=== PATIENT | female | born 1940 | race Caucasian/White ===

== ENCOUNTER 2017-04-24 09:59 | Inpatient (IN) | payer MEDICARE ==
[2017-04-24] VITALS (9 sets, daily range): BP systolic 103–172; BP diastolic 52–80; PULSE 63–76; RESP 13–16; O2SAT 94–100
[~2017-04-24] VITALS: Ht 167.6 cm; Wt 64.4 kg
--- NOTE | 2017-04-24 07:44 | PCM.HPANE ---
Patient Data Surgeon Admitting Provider: Attending Provider:Dao Isabel MD Primary Care Physician:Elise Vu MD Other Provider:Jill Thomas Anesthesia Reason for Visit Left Hip Arthritis Ht/WT & BMI Height (Feet): 5 Height (Inches): 6 Weight (Kilograms): 64.86 Body Mass Index 22.00 Allergies Coded Allergies: No Known Allergies (Verified Allergy, Unknown, 09/17/14) Past Anesthesia History Anesthesia History: Denies:: Abnormal Airway, Anesthesia Reactions, Difficult Intubation, Fam Anesthesia Reaction, Fam Malignant Hypertherm, Malignant Hyperthermia Diabetes History Hx Diabetes?: No MRSA MRSA: No Medications Blood Thinner: Aspirin Reported Medications [vitamin d2] No Conflict CheckUnknown Dose WEEKLY 04/19/17 Ascorbate Calcium (Vitamin C)500 Mg Tablet1,000 Mg PO DAILY 04/19/17 Turm/Ging/Rivera/Yuc/Dlae/Salvatore/Hor (Tumersaid Tablet)1 Each Tablet1 Each PO DAILY with curcumin 1000mg 04/19/17 Fish Oil/Borage/Flax/Om3,6,9#1 (Triple [place] Complex 3-6-9)400 Mg Urfjunh152 Mg PO DAILY 04/19/17 Red Yeast Rice 600 Mg Prqappb165 Mg PO DAILY 04/19/17 Multivitamin (Multi Vitamin Daily)1 Each Tablet1 Each PO DAILY 30 Days Ref 0 04/19/17 Lutein 20 Mg Gkpoes92 Mg PO DAILY 04/19/17 Hydroxychloroquine Sulfate 200 Mg Gnnsrt164 Mg PO DAILY 30 Days Ref 0 04/19/17 Gluc Tay/MSM/Magnesium/Vit C (Glucosamine Complex-MSM Cap)1 Each Capsule1 Each PO DAILY 04/19/17 Echinacea 400 Mg Ehvuhkx840 Mg PO DAILY 04/19/17 Calcium Carbonate (Calcium)600 Mg Tablet1,200 Mg PO DAILY 04/19/17 Vit B Comp/C/FA/Iron/Vit E (Vitamin B Complex Tablet)1 Each Tablet1 Each PO DAILY 04/19/17 Aspirin 81 Mg Pfjpjc07 Mg PO DAILY Ref 0 04/19/17 Discontinued Reported Medications [neuro-PS] No Conflict Check Po Daily 09/17/14 Fish Oil/Borage/Flax/Om3,6,9#1 (Triple [place] Complex 3-6-9)400 Mg Gjoavdn378 Mg PO DAILY 08/27/14 Red Yeast Rice 600 Mg Pzhzfeh235 Mg PO DAILY 08/27/14 Multivitamin with Minerals (Multivitamins with Minerals)1 Each Tablet1 Each PO DAILY 08/27/14 Magnesium Oxide/Mag Aa Chelate (Magnesium 300 mg Capsule)300 Mg Xecyibm073 Mg PO DAILY 08/27/14 Lutein 20 Mg Jddhblm67 Mg PO DAILY 08/27/14 Hydroxychloroquine Sulfate 200 Mg Fjdwre719 Mg PO DAILY 30 Days Ref 0 08/27/14 Gluc Tay/MSM/Magnesium/Vit C (Glucosamine Complex-MSM Cap)1 Each Capsule1 Each PO DAILY 08/27/14 [place]-3 Fatty Acids/Fish Oil (Fish Oil Softgel)1 Each Capsule1 Each PO DAILY 08/27/14 Echinacea 400 Mg Igydspr886 Mg PO DAILY 08/27/14 Calcium Carbonate (Calcium)600 Mg Tablet1,200 Mg PO DAILY 08/27/14 Vitamin B Complex (B-50 Complex)1 Each Tablet1 Each PO DAILY 08/27/14 Aspirin (Aspir 81)81 Mg Tablet.dr81 Mg PO DAILY Ref 0 08/27/14 History History of ENT Problems?: Yes HEENT History: Positive for:: Glaucoma (hx of surgery right eye) Denies:: Abnormal Airway Difficult Intubation Dysphagia Hearing Problem Hx of Heart Problems?: No Cardiovascular History: Denies:: AICD Atrial Fibrillation Cardiac Surgery Chest Pain Congestive Heart Failure Edema Heart Murmur Hypertension Irregular Heartbeat Pacemaker Thrombophlebitis Valvular Heart Disease Hx of Respiratory Problem?: No Respiratory History: Denies:: Asthma COPD Cough Hemoptysis Oxygen Administration Pneumonia Tuberculosis Use of C-PAP Machine Hx Neurologic Problems?: No Neurological History: Denies:: CVA Dementia Headaches Multiple Sclerosis Parkinson's Disease Seizures Hx of GI Problems?: No Hx of Problems?: No Female Hx: Denies:: Currently (hx of emely oopherectomy) Skin History: Denies:: History Skin Disorders? Hx Musculoskeletal Problems?: Yes Musculoskeletal History: Positive for:: Degenerative Joint Osteoarthritis (left hip current admission problem) Rheumatoid Arthritis Denies:: Joint Replacement Hx of Psycho/Social Problems?: No Psycho Social History: Denies:: Anxiety Hx Depression Hx Surgeries?: Yes (LAPAROTOMY FOR ABD PAIN, BSO, INGUINAL HERNIA, D+C) Hx Any Other Health Problems?: Yes Other History: Denies:: Thyroid Disease History Blood Transfusions: Denies:: Blood Transfusions Hx Diabetes: No Hx Alcohol Use: YesAlcoholic Drinks Per Day: one drink dailyHx Substance Use: No Smoking Status: Never Smoker Have You Smoked inLast 12 mo: No Stop/Bang S-Snoring: Do You Snore Loudly: No T-Tired: feel tired, fatigued: Yes O-Obsered: Observed not breath: No P-Blood Pressure: treated: No B- Body Mass Index > 35 kg/m2: No A- Age over 50: Yes N- Neck Large Circumference: No G- Gender Male: No SRIRAM Total Score: 2 Risk Assessment Category Category 1A: Patient has history of documented sleep apnea, and HAS NOT received any narcotic, sedative or anesthesia administration during this stay. Category 1B: Patient has history of documented sleep apnea, and HAS received any narcotic , sedative or anesthesia administration during this stay Category 2: Patient has SUSPECTED Obstructive Sleep Apnea, and HAS received any narcotic , sedative or anesthesia administration during this stay. Category 3: Patient has SUSPECTED Obstructive Sleep Apnea and HAS NOT received narcotic, sedative or anesthesia administration during this stay. Category 4: Outpatient in Procedural Areas with known sleep apnea or who screen positive for High Risk via the STOP/BANG questionnaire. Plan Impression Patient chart reviewed, patient interviewed and anesthestic plan with risks, benefits, and alternatives discussed, and informed consent obtained. Magan Terrell MD Apr 24, 2017 07:44
[~2017-04-24 09:59] MED LIST: ASCO-294 PO; ASPI-973 PO; CALC600T12 PO; CeFAZolin 2 Gm/50 mL D5W IV Premix IV ONE; ECHI400C17 PO; FISH400C2 PO; GLUC1CAP8 PO; HYDR200T5 PO; LUTE20TA PO; Lactated Ringer's 1,000 ML IV ONE; MULT-1018 PO; RED600CA2 PO; TURM1TAB PO; VIT1TABL83 PO; Vancomycin Inj 1,000 MG in IV Premix 1 EACH IV ONE; vitamin d2
--- NOTE | 2017-04-24 11:24 | PCM.HPANE ---
Patient Data Surgeon Admitting Provider: Attending Provider:Dao Isabel MD Primary Care Physician:Elise Vu MD Other Provider:Jill Thomas Anesthesia Reason for Visit Left Hip Arthritis Ht/WT & BMI Height (Feet): 5 Height (Inches): 6 Weight (Kilograms): 64.86 Body Mass Index 22.00 Allergies Coded Allergies: No Known Allergies (Verified Allergy, Unknown, 09/17/14) Past Anesthesia History Anesthesia History: Denies:: Abnormal Airway, Anesthesia Reactions, Difficult Intubation, Fam Anesthesia Reaction, Fam Malignant Hypertherm, Malignant Hyperthermia Diabetes History Hx Diabetes?: No MRSA MRSA: No Medications Blood Thinner: Aspirin Reported Medications [vitamin d2] No Conflict CheckUnknown Dose WEEKLY 04/19/17 Ascorbate Calcium (Vitamin C)500 Mg Tablet1,000 Mg PO DAILY 04/19/17 Turm/Ging/Rivera/Yuc/Dale/Salvatore/Hor (Tumersaid Tablet)1 Each Tablet1 Each PO DAILY with curcumin 1000mg 04/19/17 Fish Oil/Borage/Flax/Om3,6,9#1 (Triple [place] Complex 3-6-9)400 Mg Xpddbiv427 Mg PO DAILY 04/19/17 Red Yeast Rice 600 Mg Phmdtmw162 Mg PO DAILY 04/19/17 Multivitamin (Multi Vitamin Daily)1 Each Tablet1 Each PO DAILY 30 Days Ref 0 04/19/17 Lutein 20 Mg Mofyre78 Mg PO DAILY 04/19/17 Hydroxychloroquine Sulfate 200 Mg Zkhhui642 Mg PO DAILY 30 Days Ref 0 04/19/17 Gluc Tay/MSM/Magnesium/Vit C (Glucosamine Complex-MSM Cap)1 Each Capsule1 Each PO DAILY 04/19/17 Echinacea 400 Mg Ilcqkjf142 Mg PO DAILY 04/19/17 Calcium Carbonate (Calcium)600 Mg Tablet1,200 Mg PO DAILY 04/19/17 Vit B Comp/C/FA/Iron/Vit E (Vitamin B Complex Tablet)1 Each Tablet1 Each PO DAILY 04/19/17 Aspirin 81 Mg Sonozr84 Mg PO DAILY Ref 0 04/19/17 Discontinued Reported Medications [neuro-PS] No Conflict Check Po Daily 09/17/14 Fish Oil/Borage/Flax/Om3,6,9#1 (Triple [place] Complex 3-6-9)400 Mg Afekwkt304 Mg PO DAILY 08/27/14 Red Yeast Rice 600 Mg Ygudowj339 Mg PO DAILY 08/27/14 Multivitamin with Minerals (Multivitamins with Minerals)1 Each Tablet1 Each PO DAILY 08/27/14 Magnesium Oxide/Mag Aa Chelate (Magnesium 300 mg Capsule)300 Mg Ovrafkp229 Mg PO DAILY 08/27/14 Lutein 20 Mg Egfpeqc69 Mg PO DAILY 08/27/14 Hydroxychloroquine Sulfate 200 Mg Jopcbv805 Mg PO DAILY 30 Days Ref 0 08/27/14 Gluc Tay/MSM/Magnesium/Vit C (Glucosamine Complex-MSM Cap)1 Each Capsule1 Each PO DAILY 08/27/14 [place]-3 Fatty Acids/Fish Oil (Fish Oil Softgel)1 Each Capsule1 Each PO DAILY 08/27/14 Echinacea 400 Mg Xxixawk010 Mg PO DAILY 08/27/14 Calcium Carbonate (Calcium)600 Mg Tablet1,200 Mg PO DAILY 08/27/14 Vitamin B Complex (B-50 Complex)1 Each Tablet1 Each PO DAILY 08/27/14 Aspirin (Aspir 81)81 Mg Tablet.dr81 Mg PO DAILY Ref 0 08/27/14 History History of ENT Problems?: Yes HEENT History: Positive for:: Glaucoma (hx of surgery right eye) Denies:: Abnormal Airway Difficult Intubation Dysphagia Hearing Problem Denture Type: None Teeth Condition: Within Normal Limits Hx of Heart Problems?: No Cardiovascular History: Denies:: AICD Atrial Fibrillation Cardiac Surgery Chest Pain Congestive Heart Failure Edema Heart Murmur Hypertension Irregular Heartbeat Pacemaker Thrombophlebitis Valvular Heart Disease Hx of Respiratory Problem?: No Respiratory History: Denies:: Asthma COPD Cough Hemoptysis Oxygen Administration Pneumonia Tuberculosis Use of C-PAP Machine Hx Neurologic Problems?: No Neurological History: Denies:: CVA Dementia Headaches Multiple Sclerosis Parkinson's Disease Seizures Hx of GI Problems?: No Hx of Problems?: No Female Hx: Denies:: Currently (hx of emely oopherectomy) Skin History: Denies:: History Skin Disorders? Hx Musculoskeletal Problems?: Yes Musculoskeletal History: Positive for:: Degenerative Joint Osteoarthritis (left hip current admission problem) Rheumatoid Arthritis Denies:: Joint Replacement Hx of Psycho/Social Problems?: No Psycho Social History: Denies:: Anxiety Hx Depression Hx Surgeries?: Yes (LAPAROTOMY FOR ABD PAIN, BSO, INGUINAL HERNIA, D+C) Hx Any Other Health Problems?: Yes Other History: Denies:: Thyroid Disease History Blood Transfusions: Denies:: Blood Transfusions Hx Diabetes: No Hx Alcohol Use: YesAlcoholic Drinks Per Day: one drink dailyHx Substance Use: No Smoking Status: Never Smoker Have You Smoked inLast 12 mo: No Stop/Bang S-Snoring: Do You Snore Loudly: No T-Tired: feel tired, fatigued: Yes O-Obsered: Observed not breath: No P-Blood Pressure: treated: No B- Body Mass Index > 35 kg/m2: No A- Age over 50: Yes N- Neck Large Circumference: No G- Gender Male: No SRIRAM Total Score: 2 SRIRAM Risk Assessment: Low Risk, <3 Yes Risk Assessment Category Category 1A: Patient has history of documented sleep apnea, and HAS NOT received any narcotic, sedative or anesthesia administration during this stay. Category 1B: Patient has history of documented sleep apnea, and HAS received any narcotic , sedative or anesthesia administration during this stay Category 2: Patient has SUSPECTED Obstructive Sleep Apnea, and HAS received any narcotic , sedative or anesthesia administration during this stay. Category 3: Patient has SUSPECTED Obstructive Sleep Apnea and HAS NOT received narcotic, sedative or anesthesia administration during this stay. Category 4: Outpatient in Procedural Areas with known sleep apnea or who screen positive for High Risk via the STOP/BANG questionnaire. Exam Exam General Appearance: Alert HEENT/AIRWAY: MP 1 Lungs: Clear to Auscultation Heart: Exam Unremarkable Plan Impression Patient chart reviewed, patient interviewed and anesthestic plan with risks, benefits, and alternatives discussed, and informed consent obtained. ASA Physical Status: ASA2 Mod Systemic Disease Anesthetic Plan: SAB Bene/Risks/Altern/Consents: Yes HP Complete Prior to Induction: Yes Moises Lopez MD Apr 24, 2017 11:24
[2017-04-24] MEDS ORDERED: Vancomycin 1,000mg/200 mL NS IV ONE (12:04)
[2017-04-24] MEDS ORDERED: CeFAZolin 2 Gm/50 mL D5W Duplex Bag IV ONE (12:04)
[2017-04-24] MEDS ORDERED: Tranexamic Acid 100 mg/mL 10 mL Inj ONE (13:03)
[2017-04-24] MEDS ORDERED: 0.9% Sodium Chloride 100 ML ONE (13:04)
[2017-04-24] MEDS ORDERED: Bupivacaine-MPF 0.5% W/EPI 30 mL Inj INFILTRATE ONE (13:54)
--- NOTE | 2017-04-24 15:15 | PCM.ANEP1 ---
Post Anesthesia PACU Phase 1 Assessment Vital Signs hr 72 sat 95 bp rr10 temp 105/52 Vital Signs Date Time Temp Pulse Resp B/P Pulse Ox O2 Delivery O2 Flow Rate FiO2 04/24/17 11:29 36.3 64 16 172/74 100 Room Air Anesthetic Administered: Regional Block Level of Alertness: Awake, talking FORRESTER's with Equal Strength: No Pain: No Nausea or Vomiting: No CV Function & Hydration Stable: No Airway Device: Oxygen Delivery: Room Air Lungs: Clear to Auscultation Dermatome Level: T10 (Umbilicus) PACU Phase 2 Assessment Complications: No Follow up Care: N/A Patient Instructions Provided: N/A Moises Lopez MD Apr 24, 2017 15:15
[2017-04-24 15:33] LABS: APPEARANCE,URINE HAZY (CLEAR,HAZY); COLOR,URINE STRAW (YELLOW); OCCULT BLOOD,URINE NEGATIVE (NEGATIVE); UROBILINOGEN,URINE NORMAL (NORMAL)
--- NOTE | 2017-04-24 16:06 | DRSVH ---
PROCEDURE: X-RAY PELVIS ONE OR TWO VIEWS ([id number]) INDICATIONS: POST LEFT IAN TECHNIQUE: 1 view of the lower pelvis acquired. COMPARISON: None. FINDINGS: Bones: Patient is status post left hip arthroplasty, with hardware components in expected positions. The hip joint appears congruent. The visualized bony structures appear intact. Soft tissues: Overlying postoperative changes are noted. No suspicious soft tissue densities. IMPRESSION: Status post left hip arthroplasty. Dictated by: Ramona Dykes MD, PhD on 04/24/2017 at 16:04 Approved by: Ramona Dykes MD, PhD on 04/24/2017 at 16:05
[2017-04-24] MEDS ORDERED: fentaNYL-PF 50 mCg/mL 2 mL Inj ONE (16:29)
[2017-04-24] MEDS ORDERED: Ondansetron 2 mg/mL 2 mL Inj ONE (16:42)
[2017-04-24] MEDS ORDERED: diphenhydrAMINE 25 mg Capsule PO PRN (17:30)
[2017-04-24] MEDS ORDERED: hydrOXYzine Pamoate 25 mg Capsule PO PRN (17:30)
[2017-04-24] MEDS ORDERED: Magnesium Hydroxide 10 mL Oral Concentration PO PRN (17:30)
[2017-04-24] MEDS ORDERED: LORazepam 0.5 mg Tablet PO PRN (17:55)
[2017-04-24] MEDS ORDERED: oxyCODONE-Acetamin 5-325 mg Tablet PO PRN (17:55)
[2017-04-24] MEDS: Lactated Ringer's 1,000 ML IV SCH (18:31)
--- NOTE | 2017-04-24 18:57 | NUR ---
Transfer/Bilateral Lower Extremity Sensation Pt. arrived to room 1009 OSC from OR at about 1615 after having a total Left hip replacement. Pt. arrived A&Ox3 with a garcia in place draining to gravity. Urine color yellow and pale, Pt. has no lower extremity feeling at this time and is bedrest. Pts. states feeling some nausea and PRN zofran IV push was given. At about 1815 Pt. states returning sensation in bilateral legs. Pt. is able to perform foot pumps, pedal pulses palpable bilaterally. Pt. is still stating some slight nausea and chicken broth was given, Pt. is tolerating that well as of now.
[2017-04-24] MEDS: Ketorolac 15 mg/mL Inj IVPUSH PRN (20:26)
[2017-04-24] MEDS: MetoCLOpramide 5 mg/mL 2 mL Inj IVPUSH PRN (21:17)
[2017-04-24] MEDS: Ondansetron 2 mg/mL 2 mL Inj IVPUSH PRN (21:28)
[2017-04-25 00:40] VITALS: BP 118/72; PULSE 70; RESP 16; O2SAT 95
[2017-04-25] MEDS: MetoCLOpramide 5 mg/mL 2 mL Inj IVPUSH PRN ×3 (00:41→10:52)
--- NOTE | 2017-04-25 00:47 | OP ---
[address] [address] OPERATIVE REPORT PATIENT: FELICITAS WATKINS : 1940 MR#: [id number] ADMIT: 04/24/2017 JOB ID: [id number] DATE OF SURGERY: PREOPERATIVE DIAGNOSIS(ES): Advanced arthritis, left hip. Symptoms uncontrolled by conservative techniques. POSTOPERATIVE DIAGNOSIS(ES): Advanced arthritis, left hip. Symptoms uncontrolled by conservative techniques. PROCEDURE: Left total hip arthroplasty. SURGEON: Dao Isabel MD. MANAGER OF CORPORATE: Kim Robles PA-C. Direct Marketing Representative required due to the major complexity of the operation. INDICATIONS: This woman requests proceeding with a total hip replacement. She understands and accepts the potential for risks and complications, which include, but not limited to infection, thromboembolic, neurovascular events, potential for dislocation, leg length inequality, and implant failure. Understanding these, she wishes to proceed. PROCEDURE: The patient was prepped and draped in the usual sterile fashion posterior-lateral. She was placed on the operating room table in a lateral position. A posterolateral approach was made after sterile prep and drape and appropriate time-out. The dissection was carried down. The piriformis was tagged and released. Capsule capsule was T'd, tagged, and released. The hip was opened. A marked effusion was encountered with aggressive synovitis inflammatory fluid was benign in nature clear without evidence for infection. Standard distal femoral head cut made. Bone fragment removed. The acetabulum was exposed and then progressively reamed to a 53. A 54 outer bearing shell was impacted into place in excellent position. A box osteotome utilized on the femur followed by T-handle reamer progressive broaching at 10 finally chosen as the optimal size. Trial reduction was performed. Serial neck length produced slight lengthening, excellent stability utilizing a dual mobility femoral head. Final implant was placed with identical positioning. Final construct assembled. Excellent stability was encountered. The patient was irrigated with sterile irrigant and then a dilute Betadine solution. The final closure was performed, closing capsule with #1 braided nylon to bone, external rotators closed and reattached to bone. #2 Quill utilized for deep closure, 2-0 Vicryl, 3-0 and a 4-0 intracuticular stitch utilized. Final dressing applied. Patient returned to the recovery room in stable condition. She tolerated the procedure well. There were no complications.
[2017-04-25] MEDS: Ondansetron 2 mg/mL 2 mL Inj IVPUSH PRN (02:51)
--- NOTE | 2017-04-25 03:29 | NUR ---
Pain/Nausea Pt only tolerating chicken broth and jello at start of shift. Continued to have waves of nausea. With increased pain levels d/t block wearing off, pt with increased nausea. 5mg IVP Reglan given with 2mg IVP Morphine, pt with emesis. journeyman carpenter assisting and administered 8mg IVP Zofran. Pt stating effective and eventually, once settled, was able to drift off to sleep. Pt continues to require IVP Morphine 2mg about every 1.5-2hrs with intermittent nausea medication. Pt with lots of gas, no further emesis thus far. Care continues. Addendum: 04/25/17 at 0337 by JORGE ALBERTO GRIGSBY RN Once nausea subsides and tolerating PO will attempt to switch to PO pain medications. Diet advanced to general. Will advise pt to order light breakfast d/t nausea issues.
[2017-04-25] MEDS: Ketorolac 15 mg/mL Inj IVPUSH PRN ×2 (04:07→15:26)
[2017-04-25 05:15] VITALS: BP 111/63; PULSE 73; RESP 16; O2SAT 94
[2017-04-25 05:26] LABS: BASOPHILS % (AUTO) 0.1 % (0-3); EOSINOPHILS % (AUTO) 0 % (0-5); MONOCYTES % (AUTO) 5.7 % (4-12); Mean Corpuscular Hemoglobin 31.4 pg (27.0-35.0); NEUTROPHILS % (AUTO) 88.1 % (40-74); Platelet Count 257 bil/L (150-400)
--- NOTE | 2017-04-25 08:41 | PCM.PNORTH ---
Subjective Date of Service: Apr 25, 2017 Visit Information: Reason for Visit Left Hip Arthritis Surgery/Surgery Date Post-Op Day # 1 Date of Admission: Apr 24, 2017 at 16:28 Hospital Day # Subjective Patient states she is having minimal discomfort now but had a "very rough night " in which she states she had to take a lot of morphine. She states physical therapy as not worked with her yet this morning and told her they would be by this afternoon to see her. Postop General: No Complaints, No Shortness of Breath, No Chest Pain Pain Management: PO Objective Exam Objective Sitting up in bed eating breakfast Vital Signs and I/O Vital Sign - Last Date Time Temp Pulse Resp B/P Pulse Ox O2 Delivery O2 Flow Rate FiO2 04/25/17 05:15 36.8 73 16 111/63 94 Room Air Intake and Output 04/24/17 04/24/17 04/25/17 Cumulative From/Thru 15:00 23:00 07:00 04/19/17 17:04 - 04/25/17 06:42 Intake Total 1050 ml 300 ml 1821 ml 3171 ml Output Total 200 ml 100 ml 600 ml 900 ml Balance 850 ml 200 ml 1221 ml 2271 ml Intake Oral 200 ml 600 ml 800 ml IV Total 1050 ml 100 ml 1221 ml 2371 ml Output Urine Total 100 ml 100 ml 450 ml 650 ml Emesis 150 ml 150 ml Estimated Blood Loss 100 ml 100 ml Lab & Micro Results Laboratory Tests Test 04/24/17 15:23 04/25/17 05:03 Urine Color Straw (YELLOW) Urine Appearance Hazy (CLEAR,HAZY) Urine pH 7.0 (5.0-8.0) Urine Specific [place] 1.015 (1.003-1.035) Urine Protein Negativemg/dL (NEG,TRACE) Urine Glucose (UA) Negativemg/dL (NEGATIVE) Urine Ketones Negativemg/dL (NEGATIVE) Urine Occult Blood Negative (NEGATIVE) Urine Nitrite Negative (NEGATIVE) Urine Bilirubin Negative (NEGATIVE) Urine Urobilinogen Normalmg/dL (NORMAL) Urine Leukocyte Esterase Negative (NEGATIVE) Urine RBC 0-2/hpf (0-2) Urine WBC 0-5/hpf (0-5) Urine Epithelial Cells Occasional/hpf (NONE-MOD) Urine Crystals None seen (NONE SEEN) Urine Bacteria None/hpf (NONE-FEW) Urine Hyaline Casts None/lpf (NONE) Urine Granular Casts None seen (NONE SEEN) Urine Waxy Casts None seen (NONE SEEN) Urine Red Blood Cell Casts None seen (NONE SEEN) Urine White Blood Cell Casts None seen (NONE SEEN) Urine Mucus None seen (None Seen) Urine Trichomonas None seen (NONE SEEN) Urine Yeast None (NONE SEEN) Urinalysis Comment None Urine Culture Reflexed Not indicated White Blood Count 10.7th/mm3 (3.8-10.1) Red Blood Count 2.99mil/mm3 (3.90-5.20) Hemoglobin 9.4g/dL (12.0-15.6) Hematocrit 28.4% (35.0-46.0) Mean Corpuscular Volume 95.0fL (81-100) Mean Corpuscular Hemoglobin 31.4pg (27.0-35.0) Mean Corpuscular Hemoglobin Concent 33.1% (32.0-37.0) Red Cell Distribution Width 12.1% (12.3-15.4) Platelet Count 257bil/L (150-400) Neutrophils (%) (Auto) 88.1% (40-74) Lymphocytes (%) (Auto) 5.9% (14-46) Monocytes (%) (Auto) 5.7% (4-12) Eosinophils (%) (Auto) 0% (0-5) Basophils (%) (Auto) 0.1% (0-3) Result Diagram: 04/25/17 0503 General Appearance: Alert, Oriented X3, Cooperative, No Acute Distress Extremities: Distal Pulses Palpable, No Compartment Syndrom Noted, Thigh & Calf Soft/Nontender Postop Sensory Motor: Distal Motor Intact, Movement in Toes, Distal Sensation Intact, NVI Distally SURGICAL WOUND : Wound Location/Description Perioperative dressing c/d/i Activity: Ambulate with PT Assessment & Plan Impression POD#1 left total hip arthroplasty Problems: Plan Weightbearing: Weightbearing as tolerated with a front wheeled walker DVT prophylaxis: Aspirin 81mg BID x6 weeks Physical therapy for transfers, progressive ambulation, strengthening Hip precautions were reviewed with patient today Wound care: Perioperative dressings will be changed to an island dressing tomorrow Analgesia: Oral pain management is preferred. Discharge plan: Discharge home in 1-2 days. Follow-up plan: In 2 weeks at [facility] with PA for wound check and at [address] Isabel with x-rays VTE Prophylaxis: Other (Aspirin 81mg BID x6 weeks) Kim Robles PA-C Apr 25, 2017 08:41
[2017-04-25] MEDS: HYDROcodone-APAP 5-325 mg Tablet PO PRN ×3 (08:53→18:27)
[2017-04-25] MEDS ORDERED: HYDR200T5 PO (09:10)
[2017-04-25] MEDS: CeFAZolin 2 Gm/50 mL D5W IV Premix IV SCH ×2 (10:07→17:59)
[2017-04-25] MEDS: Lactated Ringer's 1,000 ML IV SCH (10:07)
[2017-04-25 11:02] VITALS: BP 122/82; PULSE 68; RESP 17; O2SAT 95
[2017-04-25 15:32] VITALS: BP 115/78; PULSE 52; RESP 16; O2SAT 94
[2017-04-25 20:20] VITALS: BP 116/66; PULSE 75; RESP 17; O2SAT 98
[2017-04-26] MEDS: HYDROcodone-APAP 5-325 mg Tablet PO PRN ×4 (00:36→18:24)
--- NOTE | 2017-04-26 03:00 | NUR ---
Void Pt garcia dc'd 04/25/17 at 1530. Pt aware of the need to void by 1930 per RN shift report. DRYWALL HANGER HELPER assisted pt to BSC at 1999, pt voided 50cc. DRYWALL HANGER HELPER reported PVR 13cc. Pt denies pressure or bladder discomfort. Pt again up to BR at 0030 with again, minimal output. Couple hundred cc's. Dark courtney appearing urine. Pt continues to deny discomfort. Encouraged PO hydration, IVF continue. Care continues.
[2017-04-26] MEDS: Lactated Ringer's 1,000 ML IV SCH ×2 (03:57→19:27)
[2017-04-26 05:58] VITALS: BP 164/75; PULSE 77; RESP 17; O2SAT 94
--- NOTE | 2017-04-26 07:24 | PCM.PNORTH ---
Subjective Date of Service: Apr 26, 2017 Visit Information: Reason for Visit Left Hip Arthritis Surgery/Surgery Date left total hip arthroplasty 04/24/2017 Post-Op Day # 2 Date of Admission: Apr 24, 2017 at 16:28 Hospital Day # Subjective Patient reports she is feeling much better today. She denies nausea, weakness or dizziness. She still does not feel like eating very much. Patient is already out of bed and sitting up in a chair. She feels a lot better sitting up in bed. She is looking forward to getting up and doing some walking today. Postop General: No Complaints, No Shortness of Breath, No Chest Pain Pain Management: PO Objective Exam Objective Patient is seen sitting up in a chair Vital Signs and I/O Vital Sign - Last Date Time Temp Pulse Resp B/P Pulse Ox O2 Delivery O2 Flow Rate FiO2 04/26/17 05:58 36.7 77 17 164/75 94 Room Air Intake and Output 04/25/17 04/25/17 04/26/17 Cumulative From/Thru 15:00 23:00 07:00 04/19/17 17:04 - 04/26/17 05:58 Intake Total 1222 ml 1939 ml 6332 ml Output Total 200 ml 450 ml 1550 ml Balance 1022 ml 1489 ml 4782 ml Intake Oral 520 ml 1220 ml 2540 ml IV Total 702 ml 719 ml 3792 ml Output Urine Total 200 ml 450 ml 1300 ml Emesis 150 ml Estimated Blood Loss 100 ml # Bowel Movements 0 0 Result Diagram: 04/25/17 0503 General Appearance: Alert, Oriented X3, Cooperative, No Acute Distress Extremities: Distal Pulses Palpable, No Compartment Syndrom Noted, Thigh & Calf Soft/Nontender Postop Sensory Motor: Distal Motor Intact SURGICAL WOUND : Incision General Appearance: No Direct Observation Dressing & Drainage Status: Intact (clean and dry) Activity: Activity per PT, Ambulate with PT Catheters: None Assessment & Plan Impression POD #2 status post left total hip arthroplasty Problems: Plan Patient appears much more clear and alert today Weightbearing: Weightbearing as tolerated with a front wheeled walker DVT prophylaxis: Aspirin 81mg BID x6 weeks Physical therapy for transfers, progressive ambulation, strengthening Hip precautions were reviewed with patient today Wound care: Dressing is changed last night by nursing to an island dressing. It is clean dry and intact Analgesia: Oral pain management is preferred. We will avoid IV pain medication as this is likely contribute to her nausea and feeling "woozy" Discharge plan: Discharge home tomorrow. Follow-up plan: In 2 weeks at [facility] with PA for wound check and at [address] Isabel with x-rays VTE Prophylaxis: Other (Aspirin 81mg BID x6 weeks) Esha Matute PA-C Apr 26, 2017 07:23
[2017-04-26 08:24] VITALS: BP 113/62; PULSE 75; RESP 17; O2SAT 96
--- NOTE | 2017-04-26 10:45 | NUR ---
ALIS Signed @ 1010 AM
[2017-04-26 12:02] VITALS: BP 118/80; PULSE 68; RESP 17; O2SAT 98
--- NOTE | 2017-04-26 16:27 | NUR ---
activity tolerating activity well, up in room frequently with FWW. good pain control with [place]. WBAT
--- NOTE | 2017-04-26 16:28 | NUR ---
Social Work- Initial Assessment Data: See Initial Assessment. Pt is a 77 year old female admitted 04/24/17 for left hip arthritis. Pt is POD 2 of elective hip replacement. Pt's insurance is [facility] and PCP is Elise Vu MD. Pt's NOK/DPOA is Jesus Wahl, , . Jesus is pt's designated discharge planning contact. Pt's readmit risk score is 1- low risk. SW met with pt at bedside regarding discharge plan, SW role explained. Pt alert and oriented x3. Pt resides in [place] with her where she is independent at baseline. Pt continues to drive. Pt lives in a home with two levels but will be remaining on the main level as she recovers. Pt does not use any DME at baseline but has borrowed a cane and walker for ambulation after this admission. Pt confirms she has scheduled outpt PT beginning on Monday at [facility] in . Pt has no HH or SNF history. Pt has no LTC or VA benefits. PT evaluated pt and is concerned as pt is ambulating very slowly and is min A with fww at times. It took pt a prolonged period of time to ambulate 25 feet and pt was reported as being very rigid. Pt stated belief that she will progress prior to admission. Pt agreeable to continued therapy. Pt acknowledges that this is atypical given her baseline mobility is exercise classes 3 times per week. Pt to discharge home with to transport via POV. No discharge needs identified at this time but SW will continue to follow to ensure progressive ambulation with therapy and safe discharge planning. Assessment: Pt who is independent at baseline and who will follow up with outpt PT. Plan: Pt to discharge home with to transport via POV. No discharge needs identified at this time but SW will continue to follow to ensure progressive ambulation with therapy and safe discharge planning. KERA Castillo Addendum: 04/26/17 at 1633 by MONI ANNE-MARIE SS Amended: Links added.
[2017-04-26 19:30] VITALS: BP 129/68; PULSE 72; RESP 17; O2SAT 96
[2017-04-27] MEDS: HYDROcodone-APAP 5-325 mg Tablet PO PRN ×3 (00:54→12:48)
[2017-04-27 04:51] VITALS: BP 136/63; PULSE 74; RESP 17; O2SAT 97
--- NOTE | 2017-04-27 07:35 | NUR ---
Ambulation Patient up independent from bed to bathroom stand by assist w/FWW. Patient A&OX3. Vitals stable. Patient taking 2 [place] for pain.
[2017-04-27 08:20] VITALS: BP 139/71; PULSE 69; RESP 20; O2SAT 95
--- NOTE | 2017-04-27 08:21 | PCM.PNORTH ---
Subjective Date of Service: Apr 27, 2017 Visit Information: Reason for Visit Left Hip Arthritis Surgery/Surgery Date left total hip arthroplasty 04/24/2017 Post-Op Day # 3 Date of Admission: Apr 24, 2017 at 16:28 Hospital Day # Subjective Patient reports that she is feeling much better today. She is independently gotten out of bed and up to the bathroom. She is currently sitting in chair. She feels that she is ready for going home today. Postop General: No Complaints, No Shortness of Breath, No Chest Pain Pain Management: PO Objective Exam Objective Patient is seen sitting up in a chair Vital Signs and I/O Vital Sign - Last Date Time Temp Pulse Resp B/P Pulse Ox O2 Delivery O2 Flow Rate FiO2 04/27/17 04:51 36.7 74 17 136/63 97 Room Air Intake and Output 04/26/17 04/26/17 04/27/17 Cumulative From/Thru 15:00 23:00 07:00 04/19/17 17:04 - 04/27/17 04:51 Intake Total 1107 ml 1100 ml 8539 ml Output Total 850 ml 800 ml 3200 ml Balance 257 ml 300 ml 5339 ml Intake Oral 1107 ml 1100 ml 4747 ml IV Total 3792 ml Output Urine Total 850 ml 800 ml 2950 ml Emesis 150 ml Estimated Blood Loss 100 ml # Bowel Movements 0 0 Result Diagram: 04/25/17 0503 General Appearance: Alert, Oriented X3, Cooperative, No Acute Distress Extremities: Distal Pulses Palpable, No Compartment Syndrom Noted, Thigh & Calf Soft/Nontender Postop Sensory Motor: Distal Motor Intact, NVI Distally SURGICAL WOUND : Incision General Appearance: No Direct Observation Dressing & Drainage Status: Intact (clean and dry) Activity: Activity per PT, Ambulate with PT Catheters: None Assessment & Plan Impression POD #3 status post left total hip arthroplasty Problems: Plan Patient appears much more clear and alert today Weightbearing: Weightbearing as tolerated with a front wheeled walker DVT prophylaxis: Lovenox x 2 weeks followed by Aspirin 81mg BID x 4 weeks Physical therapy for transfers, progressive ambulation, strengthening Hip precautions were reviewed with patient today Wound care: Nursing to change hip dressing today Apply thigh high compression stockings B LE. Patient has brought her own. Discharge plan: Discharge home today Discharge instructions are reviewed with the patient Outpatient physical therapy is scheduled to start tomorrow. Pain Management: [place] VTE Prophylaxis: Other (Aspirin 81mg BID x6 weeks) Resuscitation Status: CPR: Attempt Resuscitation Esha Matute PA-C Apr 27, 2017 08:21
--- NOTE | 2017-04-27 09:13 | PCM.DIORTH ---
Ortho Discharge Instruction Date of Service: Apr 27, 2017 Dates of Hospitalization Date of Hospital Admission Apr 24, 2017 at 16:28 Providers Admitting Physician: Dao Isabel MD Primary Care Physician: Elise Vu MD Attending Physician: Dao Isabel MD Diet Discharge Diet: No restrictions Activity Discharge Activity-General: Balance rest and activity, Ice incision 3-5 time/ day for 20min Left Lower Extremity: Weight Bearing as tolerated Discharge Assist Device: Front Wheeled Walker Dressing and Incisional Care Discharge Dressing Care: Keep dressing clean, dry & intact Discharge Hygiene: May shower (see instructions below) Additional Instructions Discharge Instructions Weightbearing: Weightbearing as tolerated with a front wheeled walker DVT prophylaxis: Lovenox x 10 more days followed by Aspirin 81mg twice a day x 4 weeks Do not take any anti-inflammatory medications while doing the injections Hip precaution positions to prevent dislocation: No flexing forward past 90, no crossing the legs at the knee, no active abduction for 6 weeks after surgery Wound care: Change dressing every 2-3 days On Monday, the patient may shower if the wound has no drainage present. Wound may be uncovered to shower. Let soap and water run over the wound, pat dry and apply a new dressing. Wear thigh high compression stockings on left leg for 1 month, right leg for 2 weeks. He did not have to wear them at night when sleeping if you want to. Outpatient physical therapy is scheduled to start tomorrow. Activity: Every hour of the day that you are awake, get up and move. Either walk or do some of your exercises he learned from therapy. Follow Up Plan Follow Up Plan Follow-up and [facility] with DEQUAN in 2 weeks for wound check, and at [address] Isabel with x-ray Call your provider for: Fever, Chills, Shortness of breath, Vomitting, Drainage at incision (increasing), Wound redness, Increasing pain Esha Matute PA-C Apr 27, 2017 09:13
--- NOTE | 2017-04-27 09:14 | PCM.DC.ORT ---
Discharge Summary Date of Service: Apr 27, 2017 Date of Hospital Admission: Apr 24, 2017 at 16:28 Date of Surgery: Apr 24, 2017 Date of Discharge: Apr 27, 2017 Reason for Hospitalization: Left hip arthritis Procedures Performed: Left total hip arthroplasty Hospital Course: The patient was admitted to the hospital on 04/24/2017 and underwent the above procedure. Antibiotic prophylaxis consisting of Ancef and vancomycin. The surgeon was Dr. Isabel. Patient tolerated the procedure well and was transferred to recovery room in stable condition. Patient had physical therapy to work on ambulation and transfers. Weightbearing as tolerated with walker. Pain was managed with Dilaudid, [place] , Toradol. DVT prophylaxis: Lovenox 40 mg SQ, aspirin, SCDs. Patient progressed slowly with physical therapy initially but by POD-3 she was independent with transfers in and relating well. She was discharged home with her to assist in her care. Follow-up: at [facility] 2 weeks postop for wound check and at [address] Isabel with x-ray Diagnosis at Time of Discharge Status post left total hip arthroplasty Problems: Discharge Instructions: Weightbearing: Weightbearing as tolerated with a front wheeled walker DVT prophylaxis: Lovenox x 10 more days followed by Aspirin 81mg twice a day x 4 weeks Do not take any anti-inflammatory medications while doing the injections Hip precaution positions to prevent dislocation: No flexing forward past 90, no crossing the legs at the knee, no active abduction for 6 weeks after surgery Wound care: Change dressing every 2-3 days On Monday, the patient may shower if the wound has no drainage present. Wound may be uncovered to shower. Let soap and water run over the wound, pat dry and apply a new dressing. Wear thigh high compression stockings on left leg for 1 month, right leg for 2 weeks. He did not have to wear them at night when sleeping if you want to. Outpatient physical therapy is scheduled to start tomorrow. Activity: Every hour of the day that you are awake, get up and move. Either walk or do some of your exercises he learned from therapy. ([vitamin d2]) Unknown Dose WEEKLY Ascorbate Calcium (Vitamin C) 500 Mg Tablet 1,000 MG PO DAILY Calcium Carbonate (Calcium) 600 Mg Tablet 1,200 MG PO DAILY Echinacea (Echinacea) 400 Mg Capsule 400 MG PO DAILY Enoxaparin Sodium (Enoxaparin Sodium) 40 Mg/0.4 Ml Syringe 40 MG SUBQ 15 Gluc Tay/MSM/Magnesium/Vit C (Glucosamine Complex-MSM Cap) 1 Each Capsule 1 EACH PO DAILY Hydrocodone-Acetaminophen 5-325 mg (Hydrocodone-Acetaminophen 5-325 mg) 1 Each Tablet 1-2 TABLET PO Q4H PRN PRN For Moderate Pain Max 8 per day Hydroxychloroquine Sulfate (Hydroxychloroquine Sulfate) 200 Mg Tablet 400 MG PO DAILY Hydroxychloroquine Sulfate (Hydroxychloroquine Sulfate) 200 Mg Tablet 400 MG PO DAILY Lutein (Lutein) 20 Mg Tablet 20 MG PO DAILY Multivitamin (Multi Vitamin Daily) 1 Each Tablet 1 EACH PO DAILY Red Yeast Rice (Red Yeast Rice) 600 Mg Capsule 600 MG PO DAILY Vit B Comp/C/FA/Iron/Vit E (Vitamin B Complex Tablet) 1 Each Tablet 1 EACH PO DAILY Esha Matute PA-C Apr 27, 2017 09:13
[2017-04-27] MEDS ORDERED: ENOX40DI8 SUBQ (09:16)
[2017-04-27] MEDS ORDERED: HYDR-4003 PO (09:16)
--- NOTE | 2017-04-27 10:47 | NUR ---
Social Work- Readiness for Discharge Data: EMR reviewed. Pt is a 77 year old female on POD 3. Pt is medically ready for discharge, anticipate discharge later today. Pt's discharge orders are in and active, Physical Therapy to see pt prior to discharge, likely this afternoon. Per RN note, pt ambulated to bathroom with fww SBA this morning. Pt confirmed this and is hopeful that she will continue to progress with PT this afternoon. Pt's was in the room during this conversation, pt's is feeling more confident and prepared for pt to return home. No discharge concerns identified at this time. SW will follow closely to ensure pt progresses appropriately with PT prior to discharge. Pt to discharge home with to transport via POV. No discharge needs identified, SW will continue to follow. Assessment: Pt who is independent at baseline and will pursue outpt PT. Plan: PT to work with pt this afternoon prior to discharge. Pt and are more confident about pt's return home. Pt to discharge home with to transport via POV. No discharge needs identified, SW will continue to follow. KERA Castillo
--- NOTE | 2017-04-27 13:00 | NUR ---
discharged home with . discharge teaching done and Lovenox teaching. pt was able to demonstrate. She will have f/u appt in 2 weeks with PAC. eating/drinking well, good pain control, ambulating independently with FWW
[2017-07-25] MEDS ORDERED: EPHEDrine/NS 5 mg/mL 5 mL Syringe ONE (07:38)
[2017-07-25] MEDS ORDERED: Propofol 10,000 mCg/mL 20 mL Inj ONE (07:38)
== END 2017-04-27 13:15 | disposition home or self-care (01) | DRG 470 ==
LOC: SAS 09:59 → OSC 16:28
PROVIDERS: ADMIT Orthopaedic Surgery; ATTEND Orthopaedic Surgery
PROC: 0SRB0JA Replacement of Left Hip Joint with Synthetic Substitute, Uncemented, Open Approach (ICD-10-PCS; principal; 2017-04-24 13:00)
DX: M16.12 Unilateral primary osteoarthritis, left hip (principal); Z79.82 Long term (current) use of aspirin; E78.5 Hyperlipidemia, unspecified; F41.9 Anxiety disorder, unspecified